=== PATIENT | male | born 1935 | race Caucasian/White ===

== ENCOUNTER 2016-03-30 22:43 | Inpatient (IN) | payer OTHER ==
[~2016-03-30] VITALS: Ht 182.9 cm; Wt 81.8 kg
[2016-03-30 23:25] LABS: HEMATOCRIT 39.1 % (38.0-50.0); MCH 33.2 PG (29.0-34.0); MCHC 33.8 G/DL (30.0-36.0); MCV 98.5 FL (86-99); MEAN PLAT.VOLUME 9.9 uM^3 (9.0-12.4); PLATELET COUNT 122 K/uL (156-360); RBC DIS.WIDTH-CV 13.1 % (11.8-14.6); RBC DIS.WIDTH-SD 46.1 % (39-53); RED BLOOD COUNT 3.97 M/uL (4.00-5.50); WHITE BLOOD COUNT 5.8 K/uL (4.1-10.2)
[2016-03-30 23:29] LABS: CARBON DIOXIDE (BICARBONATE) 28.6 MEQ/L (20-31)
[2016-03-30 23:37] LABS: CHLORIDE 104 mEq/L (99-109); POTASSIUM 4.1 mEq/L (3.7-5.4); SODIUM 137 mEq/L (136-147)
[2016-03-30 23:39] LABS: GLUCOSE 97 mg/dL (70-99)
[2016-03-30 23:40] LABS: ANION GAP 10 MEQ/L (2-14)
[2016-03-30 23:43] LABS: UREA NITROGEN (BUN) 20 mg/dL (9-23)
[2016-03-30 23:44] LABS: GFR ESTIMATE (CALCULATED) > 59 mL/min/
[2016-03-30 23:47] LABS: TROP-I INTERPRETATION NEGATIVE; TROPONIN-I 0.06 ng/mL (0.0-0.30)
[2016-03-31] MEDS ORDERED: SERTRALINE HCL25 MG PO (00:13)
[2016-03-31] MEDS ORDERED: LEVOTHYROXINE137 MCG PO (00:13)
[2016-03-31] MEDS ORDERED: FERROUS SULFAT325 MG PO (00:13)
[2016-03-31] MEDS ORDERED: COLACE100 MG PO (00:13)
[2016-03-31] MEDS ORDERED: TYLENOL EXTRA500 MG PO ×3 (00:14→00:17)
[2016-03-31] MEDS ORDERED: FUROSEMIDE40 MG PO (00:14)
[2016-03-31] MEDS ORDERED: ISOSORBIDE DINI30 MG PO (00:14)
[2016-03-31] MEDS ORDERED: TAMSULOSIN HCL0.4 MG PO (00:15)
[2016-03-31] MEDS ORDERED: CARVEDILOL3.125 MG PO (00:16)
[2016-03-31] MEDS ORDERED: TRAMADOL HCL50 MG PO (00:16)
[2016-03-31] MEDS ORDERED: ZETIA10 MG PO (00:16)
[2016-03-31 03:45] VITALS: BP 149/67
[2016-03-31 08:05] VITALS: BP 132/63
[2016-03-31 16:04] VITALS: BP 121/57
[2016-03-31 16:14] VITALS: BP 121/57
[2016-03-31 16:26] LABS: INFLUENZA A VIRAL ANTIGEN NEGATIVE; INFLUENZA B VIRAL ANTIGEN NEGATIVE
[2016-03-31 23:35] VITALS: BP 113/64
[2016-04-01 06:31] LABS: EOSINOPHIL (%) 0 % (0-5); HEMATOCRIT 37.2 % (38.0-50.0); MCH 32.5 PG (29.0-34.0); MCHC 32.8 G/DL (30.0-36.0); MCV 99.2 FL (86-99); MEAN PLAT.VOLUME 10.6 uM^3 (9.0-12.4); MONOCYTE (%) 4.2 % (3-12); MONOCYTE COUNT 0.2 K/uL (0-0.8); NEUTROPHIL (%) 78.7 % (45-76); NEUTROPHIL COUNT 4.5 K/uL (1.8-6.4); PLATELET COUNT 135 K/uL (156-360); RBC DIS.WIDTH-CV 13.1 % (11.8-14.6); RBC DIS.WIDTH-SD 47.8 % (39-53); RED BLOOD COUNT 3.75 M/uL (4.00-5.50); WHITE BLOOD COUNT 5.7 K/uL (4.1-10.2)
[2016-04-01 06:58] LABS: ANION GAP 8 MEQ/L (2-14); CHLORIDE 108 MEQ/L (99-109); GFR ESTIMATE (CALCULATED) > 59 mL/min/; GLUCOSE 140 mg/dL (70-99); POTASSIUM 4.1 MEQ/L (3.7-5.4); SAMPLE HEMOLYSIS CHECK 0; SAMPLE ICTERIC CHECK 0; SAMPLE LIPEMIA CHECK 0; SODIUM 140 MEQ/L (136-147); UREA NITROGEN (BUN) 25 mg/dL (9-23)
[2016-04-01 07:56] VITALS: BP 135/68
[2016-04-01 15:54] VITALS: BP 128/63
[2016-04-01] MEDS ORDERED: AZITHROMYCIN250 MG PO (18:56)
[2016-04-01] MEDS ORDERED: DUONEB 2.5-0.5 M3 ML AEROSOL (18:58)
[2016-04-01] MEDS ORDERED: TRAMADOL HCL50 MG PO (19:00)
[2016-04-01] MEDS ORDERED: PREDNISONE20 MG PO (19:04)
[2016-04-02] VITALS: BP 125/65
[2016-04-02 07:54] VITALS: BP 126/66
== END 2016-04-02 11:30 | disposition home or self-care (01) | DRG 192 ==
LOC: EME → EDBD 22:43 → 5SOUTH 03-31 00:35 → EDOF 03-31 00:35 → 5SOUTH 03-31 03:19
PROVIDERS: Emergency Medicine; Family Medicine Sports Medicine; Internal Medicine Pulmonary Disease
DX: J44.0 Chronic obstructive pulmonary disease with (acute) lower respiratory infection (principal); I10 Essential (primary) hypertension; E03.9 Hypothyroidism, unspecified; I25.10 Atherosclerotic heart disease of native coronary artery without angina pectoris; E78.5 Hyperlipidemia, unspecified; I50.9 Heart failure, unspecified; M19.90 Unspecified osteoarthritis, unspecified site; N40.0 Benign prostatic hyperplasia without lower urinary tract symptoms; Z96.651 Presence of right artificial knee joint; R09.02 Hypoxemia
CPT/HCPCS: 71020; 80048; 82803; 83605; 83880; 84484; 85025; 85027; 87040; 87502; 93005; 94640; 94640 76; 94760; 94799; 99202; 99281; 99285; J1650; J1956; J2930; J7030; J7512; J7644